=== PATIENT | female | born 1990 | race Caucasian/White ===

== ENCOUNTER 2023-01-18 13:20 | Emergency (ER) | payer OTHER, SELFPAY ==
--- NOTE | ~2023-01-18 | CT_ITS ---
EXAMINATION: CT cervical spine wo con DATE: 01/18/2023 15:51 INDICATION: neck pain TECHNIQUE: Computed tomography (CT) of the cervical spine was performed without intravenous contrast. Automated exposure control and iterative reconstruction technique were employed. The dose-length pro duct was 269.28 mGy-cm. COMPARISON: None. FINDINGS: Vertebral Body Alignment: Intact. Reversed cervical lordosis centered at C4-5. Craniocervical and atlantoaxial alignment: No significant degenerative change. Alignment intact. Osseous structures/fracture: No evidence of a lytic or blastic process in the visualized spine. No e vidence of acute fracture. Very mild posterior widening of the C2-3 through C4-5 disc spaces. Mild wi dening of the posterior elements and C4-5 and C5-6, with no significant facet uncovering. Cervical soft tissues: The paraspinal soft tissues planes are maintained. Degenerative changes: 3 mm left paracentral disc protrusion at C4-5, with mild posterior marginal ost eophytosis. No significant central canal or neural foraminal narrowing. IMPRESSION: 1. No acute fracture detected in the cervical spine. 2. 3 mm left paracentral disc protrusion at C4-5. 3. Reversed cervical lordosis, with mild posterior disc space widening at C2-C3 through C4-5 and mild posterior element widening at C4-5 and C5-6. These findings may be related to muscle spasm, position ing, and/or ligamentous laxity from remote injury. If there is a history of recent significant cervic al spine trauma, consider conservative management and MR of the cervical spine Reviewed, dictated and finalized at location [facility]. IMPRESSION: 1. No acute fracture detected in the cervical spine. 2. 3 mm left paracentral disc protrusion at C4-5. 3. Reversed cervical lordosis, with mild posterior disc space widening at C2-C3 through C4-5 and mild posterior element widening at C4-5 and C5-6. These findi ngs may be related to muscle spasm, positioning, and/or ligamentous laxity from remote injury. If there is a history of recent significant cervical spine trau ma, consider conservative management and MR of the cervical spine
[2023-01-18 13:33] VITALS: BP 108/69; PULSE 67; RESP 16; TEMP 36.5; O2SAT 100
--- NOTE | 2023-01-18 15:42 | ED.NECK ---
HPI - Neck Pain/Injury General Chief Complaint: Neck Pain/Injury Stated Complaint: neck is stiff Time Seen by Provider: 01/18/23 15:02 History of Present Illness HPI Narrative: 33-year-old female reports for evaluation of neck pain x3 days. Patient states 3 days ago, she was lifting herself out of the pool and felt a pop in the back of her neck. Since then she has had a dull ache in the back of her neck extending to the left side with worsening pain with movement. She states it feels tight . Patient reports taking ibuprofen and CBD drops with improvement in pain. She denies fever, body aches or chills, headache or vision changes, focal numbness or weakness, difficulty ambulating, paresthesias, loss of bowel or bladder control or retention. Related Data Allergies Allergy/AdvReac Type Severity Reaction Status Date / Time sulfamethoxazole Allergy Hives Verified 01/18/23 15:54 [From Bactrim] trimethoprim [From Bactrim] Allergy Hives Verified 01/18/23 15:54 Review of Systems Review of Systems: CONSTITUTIONAL: Denies fever, chills EYES: Denies visual changes, redness, or discharge. ENT: Denies rhinorrhea, congestion, sore throat, or otalgia. CARDIOVASCULAR: Denies chest pain, palpitations, or edema. RESPIRATORY: Denies cough or dyspnea. GASTROINTESTINAL: Denies abdominal pain, nausea, vomiting, or diarrhea. GENITOURINARY: Denies dysuria or hematuria. SKIN: Denies rash or itching. MUSCULOSKELETAL: See HPI NEUROLOGIC: Denies headache, numbness, dizziness, or weakness. PSYCHIATRIC: Denies anxiety or depression. Exam Narrative: GENERAL: Well-appearing, in no acute distress. HEAD: Normocephalic NECK: Mild midline cervical spinous tenderness without step-offs, deformities or crepitus. Tenderness overlying the left trapezius with palpable spasm. Full range of motion of neck with increased pain with rightward flexion of ear to shoulder No overlying skin changes. CHEST: No respiratory distress. Clear to auscultation, no adventitious breath sounds. HEART: Regular rate and rhythm. No murmur heard. Normal peripheral pulses. EXTREMITIES: Normal range of motion. No edema. SKIN: Warm, dry, no rash. NEURO: No focal deficits. Alert and oriented x3. Strength 5/5 in BUE and BLE. Sensation intact throughout. Radial pulses 2+. PSYCH: Normal mood and affect. Course Vital Signs Vital signs: Vital Signs Temperature 97.7 F 01/18/23 13:33 Pulse Rate 67 01/18/23 13:33 Respiratory Rate 16 01/18/23 13:33 Blood Pressure 108/69 01/18/23 13:33 Pulse Oximetry 100 01/18/23 13:33 Oxygen Delivery Room Air 01/18/23 13:33 Temperature 97.7 F 01/18/23 13:33 Pulse Rate 68 01/18/23 16:51 Respiratory Rate 16 01/18/23 16:51 Blood Pressure 115/80 01/18/23 16:51 Pulse Oximetry 100 01/18/23 16:51 Oxygen Delivery Room Air 01/18/23 13:33 MDM - Neck Pain/Injury MDM Narrative Medical decision making narrative: 33-year-old female reports for evaluation of neck pain x3 days that started after she felt a pop in her neck while getting out of the pool. Vital stable. Exam reveals mild midline cervical tenderness without step-offs or deformities, tenderness over the left trapezius with palpable spasm. Full range of motion of neck, patient neurovascularly intact. She received Flexeril and ibuprofen in the ED with improvement in symptoms. CT C-spine shows no acute fracture detected. There is a 3 mm left paracentral disc protrusion at C4-C5. There is evidence of referred cervical lordosis, with mild posterior disc widening at C2-C3 through C4-C5 and mild posterior element widening at C4-C5 and C5-C6. These findings may be related to muscle spasm, positioning, and/or ligamentous laxity from remote injury. CT findings discussed with Dr. Alanis (neurosurgery) who agrees to the plan for outpatient follow-up with PCP and potential MRI if needed in the future if symptoms do not improve. Imaging discussed with the odilia
--- NOTE | 2023-01-18 15:52 | PC.NURSE ---
Patient off unit to CT.
[2023-01-18] MEDS: IBUPROFEN 600 MG TABLET PO (15:55)
[2023-01-18] MEDS: CYCLOBENZAPRINE HCL 10 MG TABLET PO (15:55)
[2023-01-18 16:51] VITALS: BP 115/80; PULSE 68; RESP 16; O2SAT 100
== END 2023-01-18 16:54 | disposition home or self-care (01) ==
PROVIDERS: Emergency Provider Physician Assistant; PCP Family Medicine
DX: S16.1XXA Strain of muscle, fascia and tendon at neck level, initial encounter (principal); M50.221 Other cervical disc displacement at C4-C5 level; X50.9XXA Other and unspecified overexertion or strenuous movements or postures, initial encounter
CPT/HCPCS: 72125; 99284; A9270

== ENCOUNTER 2024-12-21 10:53 | Emergency (ER) | payer OTHER, SELFPAY ==
--- NOTE | 2024-12-21 10:56 | ED_ITS ---
HPI - Skin/Abscess/Foreign Bdy General Chief complaint: Upper Respiratory Infection Stated complaint: Upper Respiratory Infection Time Seen by Provider: 12/21/24 10:56 Source: patient, RN notes reviewed and old records reviewed Mode of arrival: ambulatory Limitations: no limitations History of Present Illness HPI narrative: 34-year-old female presents to the [facility] with complaints of URI symptoms. States that 1 week ago she felt dizzy. Two days ago started with sneezing, sore throat. Started with a runny nose and cough yesterday. Did try allergy medication this morning with no relief. Denies fevers, chest pain pain Related Data Home Medications ?Medication ?Instructions ?Recorded ?Confirmed ?Last Taken ?Type lamotrigine 100 mg tablet 100 mg PO DAILY 12/21/24 12/21/24 Unknown History lithium carbonate 150 mg capsule 150 mg PO 12/21/24 Unknown History Allergies Allergy/AdvReac Type Severity Reaction Status Date / Time sulfamethoxazole (From Allergy Hives Verified 12/21/24 11:25 Bactrim) trimethoprim (From Bactrim) Allergy Hives Verified 12/21/24 11:25 Review of Systems Review of Systems: All systems reviewed & are unremarkable except as noted in HPI and below Constitutional: Constitutional: Reports as per HPI ENT: Reports as per HPI Cardiovascular: Cardiovascular: Reports no additional cardiovascular complaints, Denies chest pain and Denies dyspnea Respiratory: Respiratory: Reports no additional respiratory complaints, Denies chest congestion, Denies cough and Denies dyspnea Musculoskeletal: Musculoskeletal: Reports no additional musculoskeletal compl aints Integumentary/Breasts: Skin/Breast: Reports system reviewed and no additional complaints, except as docu PMFSH Comments At the time of my signature, I reviewed and agree with the nursing past medical, surgical, social, and family history. There is no relevant family history pertinent to the patient complaint. Exam Const: General: cooperative, healthy appearing, comfortable, no acute distress, well developed, alert and well nourished Nutritional Appearance: well nourished Orientation/consciousness: patient oriented x3 Limitations: no limitations HENMT: Head: normal to inspection Ears: hearing grossly normal bilaterally, external ears normal, EAC's normal, mastoids normal, no periauricular adenopathy and TM abnormal with fluid behind the TM bilateral; not bulging Face/Nose/Sinus: Normal external nose present and Nasal discharge present clear bilateral Mouth: Yes Normal oral and palatal mucosa present, Yes lip normal, Yes tongue normal and Yes moist mucous membranes Throat: tonsils normal, uvula midline, posterior oropharynx abnormal cobblestoning and erythema, postnasal drainage and no uvular edema Eyes: General: appearance normal, both eyes and all related structures Alignment and Position: alignment normal Neck: Neck: normal visual inspection, full ROM, no lymphadenopathy and no meningeal signs Chest: Chest palpation & inspection: normal inspection of the chest Resp: Effort & Inspection: normal respiratory effort and able to speak in complete sentences Auscultation: clear to auscultation bilaterally, no crackles, no rales, no rhonchi and no wheezes Cardio: Rate: regular rate Skin: General skin exam: normal color and no rashes or lesions noted Neuro: General: patient oriented x3, gait normal, moves all extremities and no meningeal signs Cognition (Neuro): normal cognition Speech: normal speech Gait exam (Neuro): Normal gait present Extrem: General: normal to inspection, full ROM, capillary refill normal and normal gait Psych: Appearance: grossly normal and well kempt Mental Status: mental status grossly normal Speech and movement: Normal speech and movement present and Clear speech present Affect: normal affect Attitude: cooperative Course Course Level of Care: Express Care Visit Vital Signs Vital signs: Vital Signs Temperature 98.1 F 12/21/24 11:03 Pulse Rate 56 L 12/21/24 11:03 Respiratory Rate 16 12/21/24 11:03 Blood Pressure 113/70 12/21/24 11:03 Pulse Oximetry 100 12/21/24 11:03 Oxygen Delivery Room Air 12/21/24 11:03 Temperature 98.1 F 12/21/24 11:03 Pulse Rate 56 L 12/21/24 11:03 Respiratory Rate 16 12/21/24 11:03 Blood Pressure 113/70 12/21/24 11:03 Pulse Oximetry 100 12/21/24 11:03 Oxygen Delivery Room Air 12/21/24 11:03 Reviewed MDM - Skin/Abscess/Foreign Bdy MDM Narrative Medical decision making narrative: Patient sitting in exam patient is nontoxic, vitals are stable. Patient presents with URI symptoms. Flu and COVID negative. Patient is appropriate for outpatient treatment of viral URI Discharge instructions reviewed with patient, as well as provided in writing per nursing staff. The instructions also include specific and strict return/GO TO THE ER as well as f/u information. All questions have been answered, and the patient deny any further questions with discharge and discharge plan. Some parts of this dictation were generated by voice recognition software and may contain typographical and/or grammatical inaccuracies. Differential Diagnosis Differential diagnosis: Likely other Lab Data Labs: Lab Results 12/21/24 Range/Units 11:01 POC Influenza A Ag Negative (Negative) POC Influenza B Ag Negative (Negative) POC SARS CoV-2 Ag Negative (Negative) Critical Care Time Critical Care Time Critical Care Time: No Discharge Plan Discharge Clinical Impression: Sinusitis, Upper respiratory infection, Fluid level behind tympanic membrane of both ears Patient Disposition: Home Condition: Stable Instructions: Upper Respiratory Infection (DC), Fluid In The Ear (Serous Otitis Media) (ED), Postnasal Drip (DC) Additional Instructions: Your rapid COVID test were negative Your rapid flu test was negative Your symptoms are likely due to a viral illness, which is not treated with antibiotics. Typically viral infections last 7-10 days, can linger for couple of weeks. It is very important to treat your symptoms. Drink plenty of water, Gatorade, Pedialyte, ice pops or Jell-O. -take Tylenol as needed -Antihistamine medication such as Zyrtec/Claritin/Sheyla during the day can help improve symptoms. -doing daily nasal irrigations can help relieve pressure your sinuses. Things like a Neti pot -Use Flonase twice a day for 5 days then daily to help reduce the inflammation and dry up your sinuses. -You can also use Mucinex. Be sure to drink plenty of water with this medication at least 8 ounces with every dose and it is important to drink 8 to 10 glasses of water per day. Water is a natural decongestant -Eat and drink things that are easy to swallow, like tea or soup, or popsicles. -Oral rinses such as: Salt water gargles and/or may use topical anesthetic (eg. Chloraseptic spray) or lozenges to relieve dryness or throat pain). -Frequent hand washing or hand transitional studies instructor is one of the best ways to prevent spread of infection. -Using a vaporizer or humidifier at night will also help thin secretions and help with coughing up phlegm. -Follow up with primary care provider in 7-10 days if condition is not improving - For new or worsening symptoms go directly to the nearest ER Patient Language: Kiswahili Prescriptions: No Action lamotrigine 100 mg tablet 100 mg PO DAILY lithium carbonate 150 mg capsule 150 mg PO Follow-up/Referrals: Valerio,Kathe Loving MD [Primary Care Provider] - 1 Week ([facility] follow- up) Stand Alone Forms: Work/School Release IP Time of Disposition: 11:26
[2024-12-21 11:03] VITALS: BP 113/70; PULSE 56; RESP 16; TEMP 36.7; O2SAT 100
[2024-12-21 11:33] LABS: EDCOVIDSCREEN Negative (Negative); EDINFLUASCREEN Negative (Negative); EDINFLUBSCREEN Negative (Negative)
== END 2024-12-21 11:30 | disposition home or self-care (01) ==
PROVIDERS: Emergency Provider Nurse Practitioner; PCP Family Medicine
DX: J32.9 Chronic sinusitis, unspecified (principal); J06.9 Acute upper respiratory infection, unspecified; H73.893 Other specified disorders of tympanic membrane, bilateral; Z20.822 Contact with and (suspected) exposure to COVID-19
CPT/HCPCS: 87426; 87804; 99212; G0463